=== PATIENT | male | born 1995 | race Caucasian/White ===

== ENCOUNTER 2018-10-28 18:34 | Emergency (ER) | payer SELFPAY ==
[~2018-10-28] VITALS: Ht 177.8 cm; Wt 98.4 kg
[2018-10-28 18:44] VITALS: Ht 177.8 cm; Wt 98.4 kg
[2018-10-28 19:16] VITALS: BP 130/70
== END 2018-10-28 19:16 | disposition home or self-care (01) ==
LOC: ED 18:34
DX: S29.012A Strain of muscle and tendon of back wall of thorax, initial encounter (principal); Z98.890 Other specified postprocedural states; X58.XXXA Exposure to other specified factors, initial encounter; Y93.89 Activity, other specified; Y92.89 Other specified places as the place of occurrence of the external cause; Y99.8 Other external cause status

== ENCOUNTER 2020-08-23 18:48 | Emergency (ER) | payer SELFPAY ==
[~2020-08-23] VITALS: Ht 175.3 cm; Wt 117.9 kg
[2020-08-23 18:51] VITALS: Ht 175.3 cm; Wt 117.9 kg
[2020-08-23 19:33] LABS: BASOPHIL % 1.1 % (0.2-1.5); PLATELET COUNT 348 x10^3mcL (152-348); RED CELL DISTRIBUTION WIDTH 13.8 % (12.1-16.2)
[2020-08-23 19:45] LABS: CALCIUM 8.5 mg/dL (8.5-10.1); CARBON DIOXIDE 29.7 mmol/L (21-32); CHLORIDE SERUM 103 mmol/L (98-107); CREATININE SERUM 0.9 mg/dL (0.7-1.3); GFR1 > 60 mL/min; GLUCOSE SERUM 95 mg/dL (74-106); POTASSIUM SERUM 4.1 mmol/L (3.5-5.1); SODIUM SERUM 138 mmol/L (136-145)
[2020-08-23 19:49] LABS: ALBUMIN 3.8 g/dL (3.4-5.0); ALKALINE PHOSPHATASE 76 U/L (46-116); ALT/SGPT 43 U/L (16-63); AST/SGOT 19 U/L (15-37); BILIRUBIN TOTAL 0.5 mg/dL (0.20-1.00); TOTAL PROTEIN, SERUM 7.6 g/dL (6.4-8.2)
[2020-08-23 21:57] VITALS: BP 147/78
== END 2020-08-23 21:50 | disposition home or self-care (01) ==
LOC: ED 18:48
PROVIDERS: Emergency Medicine
DX: K62.5 Hemorrhage of anus and rectum (principal)